=== PATIENT | female | born 1955 | race Caucasian/White ===

== ENCOUNTER → 2016-07-16 | Outpatient (CLI) | payer MEDICARE, OTHER ==
[~2016-07-16] MED LIST: BISCOLAX10 MG PR; CALCIDOL8000 UNIT/ GT; CALCIUM CIT-VI1 EAC2 GT; CARBAMAZEP100 MG/5 M GT; CONSTULOSE10 GM/15 M GT; DURAGESIC 100 MC1 EA TOP; FERROUS GLUCON324 M1 GT; HYDRALAZINE HCL10 MG GT; KLONOPIN TAB 00.5 MG GT; LINZESS290 MCG GT; MUPIROCIN22 GM TP; NAMENDA10 MG GT; NORCO 5-325 TA1 EACH GT; OMEPRAZOLE20 M1 GT; OMEPRAZOLE20 MG GT; OSMOLITE 1.51000 ML GT; PHENOBARBITAL30 MG GT; ROCEPHIN 11 G/50 ML IV; SODIUM CHLORIDE3 ML INH; TYLENOL 500 MG500 MG GT; VENTOLIN/PROVE0.5 ML INH; WATER BOTTLE1 EACH GT
== END ==
LOC: OPSV 12:00
DX: D50.9 Iron deficiency anemia, unspecified (principal)
CPT/HCPCS: 96365; 96366; J1756; J7030

== ENCOUNTER → 2016-07-22 | Outpatient (CLI) | payer MEDICARE, OTHER | LOC: OPSV 10:00 | DX: D50.9 Iron deficiency anemia, unspecified (principal) | CPT/HCPCS: 96365; 96366; J1756; J7030 ==

== ENCOUNTER → 2016-08-01 | Outpatient (CLI) | payer MEDICARE, OTHER ==
[2016-08-01 09:41] LABS: HEMOGLOBIN 7.4 gm/dl (12.3-15.3)
== END ==
LOC: OPSV 08:00
PROVIDERS: Family Medicine
DX: C93.10 Chronic myelomonocytic leukemia not having achieved remission (principal); D64.9 Anemia, unspecified
CPT/HCPCS: 36415; 36430; 85014; 85018; 86850; 86900; 86901; 86920; J7050; P9016

== ENCOUNTER → 2016-09-26 | Outpatient (CLI) | payer MEDICARE, OTHER ==
[2016-09-26 19:33] LABS: RED BLOOD COUNT 1.5 M/UL (4.00-5.10)
[2016-09-26 20:12] LABS: HEMOGLOBIN 5.6 gm/dl (12.3-15.3)
[2016-09-28 15:54] LABS: WHITE BLOOD COUNT 264.7 K/UL (4.5-11.0)
== END ==
LOC: LBRF 18:47
PROVIDERS: Family Medicine
DX: K92.0 Hematemesis (principal)
CPT/HCPCS: 85027

== ENCOUNTER → 2016-09-27 | Outpatient (CLI) | payer MEDICARE, OTHER ==
[2016-09-27 10:17] LABS: HEMOGLOBIN 5.9 gm/dl (12.3-15.3)
== END ==
LOC: OPSV 08:43
PROVIDERS: Family Medicine
DX: K92.0 Hematemesis (principal)
CPT/HCPCS: 36415; 36430; 85014; 85018; 86850; 86900; 86901; 86920; J7050; P9016